=== PATIENT | male | born 1985 | race African-American/Black ===

== ENCOUNTER 2020-03-19 22:12 | Emergency (ER) | payer OTHER ==
[~2020-03-19] VITALS: Ht 165.1 cm; Wt 91.0 kg
[2020-03-19 22:39] LABS: HEMATOCRIT 45.5 % (39.0-50.0); HEMOGLOBIN 15.5 g/dl (14.0-18.0); IMMATURE GRANULOCYTES 0.2 % (0.0-5.0); MEAN CELL VOLUME 100.4 fL CALC (80.0-100.0); MEAN CORPUSCULAR HGB 34.2 pG CALC (26.0-32.0); MEAN CORPUSCULAR HGB CONC 34.1 g/dL CAL (32.0-36.0); NEUT# 2.78 thou/uL (1.82-7.42); RED BLOOD COUNT 4.53 mill/uL (4.70-6.10); RED CELL DISTRI WIDTH 14.4 % (11.5-15.5)
[2020-03-19 22:54] LABS: ALBUMIN 5.1 g/dL (3.2-5.0); ALKALINE PHOSPHATASE 106 u/l (38-126); AMYLASE 131 u/l (30-110); ANION GAP 23 (6-22 (CALC)); BILIRUBIN, TOTAL 0.9 mg/dL (0.0-1.4); BUN 27 mg/dL (9-20); BUN/CREATININE RATIO 31 (12-20 (CALC)); CARBON DIOXIDE 27 mmol/l (22-30); CHLORIDE 99 mmol/l (95-108); CREATININE 0.9 mg/dL (0.7-1.3); ETHYL ALCOHOL 237 mg/dl (0-30); GFR > 60 ML/MIN (>=60 (CALC)); GFR FOR AFR.AMER. > 60 ML/MIN (>=60 (CALC)); LIPASE 392 u/l (23-300); MAGNESIUM 1.8 mg/dL (1.6-2.3); POTASSIUM 3.8 mmol/l (3.5-5.1); SGOT/AST 204 u/l (17-59); SODIUM 145 mmol/l (137-146); TOTAL PROTEIN 9.7 g/dL (6.3-8.2)
[2020-03-19 23:06] LABS: URINE BLOOD DIPSTICK MODERATE (NEGATIVE); URINE COLOR YELLOW; URINE GLUCOSE - DIPSTICK NEGATIVE (NEGATIVE); URINE KETONE 15 mg/dL (NEGATIVE); URINE LEUK ESTERASE NEGATIVE (NEGATIVE); URINE NITRITE - DIPSTICK NEGATIVE (Negative); URINE PROTEIN - DIPSTICK >=300 mg/dL (NEG-TRACE); URINE SPECIFIC GRAVITY >=1.030; URINE UROBILINOGEN - DIPSTICK 0.2 E.U./dL (0.2)
[2020-03-19 23:15] LABS: URINE BILIRUBIN - DIPSTICK NEGATIVE (NEGATIVE)
[2020-03-19 23:17] LABS: URINE BACTERIA FEW hpf; URINE SQUAMOUS EPITHELIAL CELL FEW EPI/hpf (0-FEW)
[2020-03-19] MEDS ORDERED: TAMSULOSIN0.4 MG PO (23:23)
[2020-03-19] MEDS ORDERED: CHOLESTEROL MED (23:24)
[2020-03-19] MEDS ORDERED: B/P MED (23:24)
[2020-03-19] MEDS ORDERED: PEPCID40 MG PO (23:40)
[2020-03-20 00:05] VITALS: BP 143/75
== END 2020-03-20 00:05 | disposition home or self-care (01) | DRG 897 ==
LOC: ED 22:12
PROVIDERS: Family Medicine
DX: F10.129 Alcohol abuse with intoxication, unspecified (principal); K29.20 Alcoholic gastritis without bleeding; I10 Essential (primary) hypertension; E78.5 Hyperlipidemia, unspecified; F32.9 Major depressive disorder, single episode, unspecified

== ENCOUNTER 2020-12-15 12:04 | Emergency (ER) | payer BC ==
[~2020-12-15 12:04] MED LIST: B/P MED; CHOLESTEROL MED; PEPCID40 MG PO; TAMSULOSIN0.4 MG PO
[2020-12-15 15:15] VITALS: BP 149/85
[2020-12-15] MEDS ORDERED: TAM75CAP PO (15:26)
[2020-12-15] MEDS ORDERED: ONDANSETRON4 MG PO (15:26)
== END 2020-12-15 15:40 | disposition home or self-care (01) | DRG 195 ==
LOC: ED 12:04
DX: J10.1 Influenza due to other identified influenza virus with other respiratory manifestations (principal); I10 Essential (primary) hypertension; E78.5 Hyperlipidemia, unspecified; F32.9 Major depressive disorder, single episode, unspecified; F10.10 Alcohol abuse, uncomplicated; Z20.822 Contact with and (suspected) exposure to COVID-19

== ENCOUNTER 2021-03-08 18:22 | Emergency (ER) | payer BC ==
[~2021-03-08 18:22] MED LIST changes: +ONDANSETRON4 MG PO; +TAM75CAP PO
== END 2021-03-08 20:18 | disposition left against medical advice (07) | DRG 951 ==
LOC: ED 18:22 → LWOBS 20:18
DX: Z53.21 Procedure and treatment not carried out due to patient leaving prior to being seen by health care provider (principal)

== ENCOUNTER 2021-06-07 18:12 | Emergency (ER) | payer SELFPAY ==
[2021-06-08] MEDS ORDERED: ZOLOFT50 MG PO (02:35)
[2021-06-08] MEDS ORDERED: MINIPRESS2 MG PO (02:35)
[2021-06-08] MEDS ORDERED: TRAZODONE100 MG PO (02:36)
== END 2021-06-07 18:50 | disposition left against medical advice (07) | DRG 951 ==
LOC: ED 18:12 → LWOBS 18:46
DX: Z53.21 Procedure and treatment not carried out due to patient leaving prior to being seen by health care provider (principal)

== ENCOUNTER 2021-06-08 01:30 | Observation (INO) | payer SELFPAY ==
[~2021-06-08] VITALS: Ht 165.1 cm; Wt 95.5 kg
--- NOTE | 2021-06-08 01:31 | NUR ---
BY EMS TO ROOM
--- NOTE | 2021-06-08 02:30 | NUR ---
NO SIGNIFICANT CHANGES NOTED.
[2021-06-08] MEDS ORDERED: ZOLOFT50 MG PO (02:35)
[2021-06-08] MEDS ORDERED: MINIPRESS2 MG PO (02:35)
[2021-06-08] MEDS ORDERED: TRAZODONE100 MG PO (02:36)
[2021-06-08 02:50] LABS: HEMATOCRIT 42.4 % (39.0-50.0); HEMOGLOBIN 14.2 g/dl (14.0-18.0); IMMATURE GRANULOCYTES 0.3 % (0.0-5.0); MEAN CELL VOLUME 103.9 fL CALC (80.0-100.0); MEAN CORPUSCULAR HGB 34.8 pG CALC (26.0-32.0); MEAN CORPUSCULAR HGB CONC 33.5 g/dL CAL (32.0-36.0); NEUT# 8.07 thou/uL (1.82-7.42); RED BLOOD COUNT 4.08 mill/uL (4.70-6.10); RED CELL DISTRI WIDTH 13.1 % (11.5-15.5)
[2021-06-08 02:51] LABS: URINE BLOOD DIPSTICK TRACE-INTACT (NEGATIVE); URINE COLOR YELLOW; URINE GLUCOSE - DIPSTICK NEGATIVE (NEGATIVE); URINE KETONE 15 mg/dL (NEGATIVE); URINE LEUK ESTERASE NEGATIVE (NEGATIVE); URINE PH 5.5 (4.5-8.0); URINE PROTEIN - DIPSTICK 100 mg/dL (NEG-TRACE); URINE SPECIFIC GRAVITY >=1.030; URINE UROBILINOGEN - DIPSTICK 0.2 E.U./dL (0.2)
[2021-06-08 02:57] LABS: URINE BILIRUBIN - DIPSTICK SMALL (NEGATIVE)
[2021-06-08 02:58] LABS: URINE NITRITE - DIPSTICK NEGATIVE (Negative)
[2021-06-08 03:08] LABS: URINE BACTERIA MODERATE hpf; URINE COARSE GRANULAR CAST FEW lpf; URINE EPITHELIAL CELLS MODERATE EPI/hpf (0-FEW); URINE FINE GRAN CAST FEW lpf; URINE HYALINE CAST FEW lpf (NONE-RARE)
[2021-06-08 03:20] LABS: ALBUMIN 4.6 g/dL (3.2-5.0); ALKALINE PHOSPHATASE 110 u/l (38-126); BUN 22 mg/dL (9-20); CHLORIDE 94 mmol/l (95-108); ETHYL ALCOHOL 113 mg/dl (0-30); LIPASE 751 u/l (23-300); POTASSIUM 3.2 mmol/l (3.5-5.1); SGOT/AST 127 u/l (17-59); SODIUM 140 mmol/l (137-146)
[2021-06-08 03:22] LABS: ANION GAP 16 (6-22 (CALC)); BILIRUBIN, TOTAL 1.3 mg/dL (0.0-1.4); BUN/CREATININE RATIO 12 (12-20 (CALC)); CARBON DIOXIDE 33 mmol/l (22-30); CREATININE 1.9 mg/dL (0.7-1.3); GFR 40 ML/MIN (>=60 (CALC)); GFR FOR AFR.AMER. 49 ML/MIN (>=60 (CALC))
--- NOTE | 2021-06-08 03:40 | NUR ---
RETURNED FROM CT. VSS. NAD.
--- NOTE | 2021-06-08 05:00 | NUR ---
NO SIGNIFICANT CHANGE IN EXAM.
--- NOTE | 2021-06-08 05:40 | NUR ---
DISCUSSED ADMISSION WITH PT.
--- NOTE | 2021-06-08 07:22 | NUR ---
PATIENT OFFERED EXTRA BLANKETS, DENIES ANY OTHERS NEEDS CURRENTLY
--- NOTE | 2021-06-08 07:45 | NUR ---
ATTEMPT TO CALL PATIENT REPORT
--- NOTE | 2021-06-08 09:54 | NUR ---
THIRD ATTEMPT TO CALL PATIENT REPORT TO MED/SURG
--- NOTE | 2021-06-08 10:20 | NUR ---
REPORT RECIEVED FROM JESSA FIERRO
--- NOTE | 2021-06-08 10:50 | NUR ---
CALL FROM MED/SURG FROM FROM SEGUNDO FIERRO FOR PATIENT REPORT
--- NOTE | 2021-06-08 10:54 | NUR ---
PT ARRIVED AT THIS TIME. PT A LITTLE SHAKY AT THIS TIME. STATES FROM WITHDRAWLS. IV SITTE ON THE RAC 20G EMS SITE. ORIENTATED PT TO ROOM. FALL/SAFTEY PRECFAUTIONS IN PLACE. CALL LIGHT IS WITHIN REACH
--- NOTE | 2021-06-08 12:00 | NUR ---
PT SITTING WATCHING TV AT THIS TIME. PT SHOWS SLIGHT ANXIETY. VERBAL CUES GIVEN. IV PATENT. CALL LIGHT WITHIN REACH. TELE MONITOR IN REACH
--- NOTE | 2021-06-08 15:11 | NUR ---
FAMILY MEMBER AT BEDSIDE
[2021-06-08 15:47] VITALS: BP 154/94
--- NOTE | 2021-06-08 17:58 | NUR ---
PT WATCHING TV AT THIS TIME. STATES FEELING BETTER JUST TIRED. BREATHING IS EVEN AND UNLABORED. FALL/SAFTEY PRECAUTIONS IN PLACE. CALL LIGHT IS WITHIN REACH
--- NOTE | 2021-06-08 19:10 | NUR ---
REPORT RECEIVED FROM Garland ADAM RN, PATIENT CARE ASSUMED AT THIS TIME.
[2021-06-08 19:26] VITALS: BP 166/94
--- NOTE | 2021-06-08 20:07 | NUR ---
ASSEMENT COMPLETED AT THIS TIME. CIWA OF 5. PATIENT DENIES ANY CURRENT NEEDS. CALL LIGHT AND BEDSIDE TABLE WITHIN THE [facility].
--- NOTE | 2021-06-09 00:15 | NUR ---
ANTIBIOTIC HUNG AT THIS TIME PT MEDICATED PER EMAR, PATIENT DENIES ANY CURRENT NEEDS. CALL LIGHT AND BEDSIDE TABLE WITHIN REACH.
--- NOTE | 2021-06-09 04:22 | NUR ---
PATIENT SLEEPING, EASILY AWOKEN BY WRITTER, DENIES ANY CURRENT NEEDS, CALL LIGHT WITHIN REACH.
[2021-06-09 04:54] VITALS: BP 148/82
[2021-06-09 05:58] LABS: HEMATOCRIT 36.7 % (39.0-50.0); MEAN CORPUSCULAR HGB CONC 32.7 g/dL CAL (32.0-36.0); RED BLOOD COUNT 3.43 mill/uL (4.70-6.10)
[2021-06-09 06:22] LABS: ANION GAP 8 (6-22 (CALC)); BUN 19 mg/dL (9-20); BUN/CREATININE RATIO 17 (12-20 (CALC)); CARBON DIOXIDE 32 mmol/l (22-30); CHLORIDE 102 mmol/l (95-108); CPK 368 u/l (52-200); CREATININE 1.2 mg/dL (0.7-1.3); GFR > 60 ML/MIN (>=60 (CALC)); GFR FOR AFR.AMER. > 60 ML/MIN (>=60 (CALC)); MAGNESIUM 1.6 mg/dL (1.6-2.3); POTASSIUM 3.2 mmol/l (3.5-5.1); SODIUM 138 mmol/l (137-146)
--- NOTE | 2021-06-09 08:00 | NUR ---
ASSESSMENT AND VITALS ALLOWED AT THIS TIME. PT IS LESS ANXIOUS TODAY. NO TREMORS NOTED TODAY. FALL/SAFETY PRECAUTIONS IN PLACE. IV IS RAC 20G INFUSING NS PER EMAR. CALL LIGHT WITHIN REACH. PT STATES NO PAIN
--- NOTE | 2021-06-09 12:00 | NUR ---
PT EATING LUNCH. NO DISTRESS NOTED. FALL/SAFTEY PRECAUTIONS IN PLACE. CALL LIGHT IS WITHIN REACH
[2021-06-09] MEDS ORDERED: PROTONIX40 M2 PO (12:55)
[2021-06-09] MEDS ORDERED: ZOFRAN4 MG/TAB PO (12:56)
[2021-06-09] MEDS ORDERED: LIBRIUM10 MG PO (12:56)
--- NOTE | 2021-06-09 16:30 | NUR ---
PT AWAKE WATCHING TV. STATES NO PAIN AT THIS TIME. IV REMAINS PATENT. FALL/SAFETY PRECAUTIONS IN PLACE. CALL LIGHT WITHIN REACH
--- NOTE | 2021-06-09 17:18 | NUR ---
Discharge instructions given. Patient verbalizes understanding of same. Discharged in stable condition via [facility] All belongings sent with pt. IV RAC 20 REMOVED. CATHETER INTATC.
== END 2021-06-09 17:18 | disposition home or self-care (01) | DRG 312 ==
LOC: ED 01:30 → ED-I 02:30 → ED 02:30 → ED-I 06:00 → ED 06:24 → ED-I 06:25 → MS2 10:50
PROVIDERS: Nurse Practitioner; ADMIT Internal Medicine; ATTEND Internal Medicine
DX: R55 Syncope and collapse (principal); K85.20 Alcohol induced acute pancreatitis without necrosis or infection; N17.9 Acute kidney failure, unspecified; M62.82 Rhabdomyolysis; E87.2 Acidosis; F10.139 Alcohol abuse with withdrawal, unspecified; F10.129 Alcohol abuse with intoxication, unspecified; K29.20 Alcoholic gastritis without bleeding; E86.0 Dehydration; E87.6 Hypokalemia; I10 Essential (primary) hypertension; E78.5 Hyperlipidemia, unspecified; R82.71 Bacteriuria; F32.A Depression, unspecified; S00.81XA Abrasion of other part of head, initial encounter; W19.XXXA Unspecified fall, initial encounter; Y90.5 Blood alcohol level of 100-119 mg/100 ml; Z20.822 Contact with and (suspected) exposure to COVID-19
CPT/HCPCS: G0378; Q9967; S0164

== ENCOUNTER 2021-11-06 07:44 | Emergency (ER) | payer SELFPAY ==
[~2021-11-06] VITALS: Ht 165.1 cm; Wt 95.4 kg
[~2021-11-06 07:44] MED LIST changes: +LIBRIUM10 MG PO; +MINIPRESS2 MG PO; +PROTONIX40 M2 PO; +TRAZODONE100 MG PO; +ZOFRAN4 MG/TAB PO; +ZOLOFT50 MG PO
[2021-11-06 07:50] VITALS: BP 139/90
[2021-11-06 08:00] VITALS: BP 138/101
[2021-11-06 08:31] VITALS: BP 133/92
[2021-11-06] MEDS ORDERED: IBUPROFEN600 MG PO (08:33)
[2021-11-06 08:51] VITALS: BP 133/92
== END 2021-11-06 08:55 | disposition home or self-care (01) | DRG 563 ==
LOC: ED 07:44
DX: S93.401A Sprain of unspecified ligament of right ankle, initial encounter (principal); I10 Essential (primary) hypertension; X58.XXXA Exposure to other specified factors, initial encounter

== ENCOUNTER 2021-11-29 14:52 | Inpatient (IN) | payer OTHER ==
[2021-11-29] VITALS (21 sets, daily range): BP systolic 100–149; BP diastolic 79–103
[~2021-11-29] VITALS: Ht 165.1 cm; Wt 95.0 kg
[~2021-11-29 14:52] MED LIST changes: +IBUPROFEN600 MG PO
--- NOTE | 2021-11-29 14:56 | NUR ---
PT TO ROOM VIA EMS
--- NOTE | 2021-11-29 15:15 | NUR ---
PATIENT ALERT AND ORIENTED X3, REPORTS BEING A DAILY DRINKER. HAD A FIFTH OF LIQUOR DURING THE NIGHT. PATIENT REPORTS FALLING AT HOME PRIOR TO ARRIVAL, INJURY/PAIN TO RIGHT ANKLE. DENIES ANY LOC OR HEAD INJURY. PATIENT REPORTS BEING IN ALCOHOL WITHDRAWS. NOTED TO HAVE TREMORS TO BILATERAL UPPER EXTREMITIES. RAMESH, CLAUDETTE AT BEDSIDE.
[2021-11-29 15:26] LABS: IMMATURE GRANULOCYTES 0.4 % (0.0-5.0); MEAN CELL VOLUME 100.9 fL CALC (80.0-100.0); MEAN CORPUSCULAR HGB CONC 33.7 g/dL CAL (32.0-36.0); NEUT# 6.23 thou/uL (1.82-7.42); RED BLOOD COUNT 4.53 mill/uL (4.70-6.10); RED CELL DISTRI WIDTH 14.3 % (11.5-15.5)
[2021-11-29 15:28] LABS: HEMATOCRIT 45.7 % (39.0-50.0); HEMOGLOBIN 15.4 g/dl (14.0-18.0)
[2021-11-29 15:47] LABS: ALBUMIN 4.9 g/dL (3.2-5.0); ALKALINE PHOSPHATASE 133 u/l (38-126); AMYLASE 146 u/l (30-110); ANION GAP 19 (6-22 (CALC)); BILIRUBIN, TOTAL 1.5 mg/dL (0.0-1.4); BUN 24 mg/dL (9-20); BUN/CREATININE RATIO 26 (12-20 (CALC)); CARBON DIOXIDE 27 mmol/l (22-30); CHLORIDE 99 mmol/l (95-108); CREATININE 0.9 mg/dL (0.7-1.3); GFR FOR AFR.AMER. > 60 ML/MIN (>=60 (CALC)); GFR OTHER RACES > 60 ML/MIN (>=60 (CALC)); LIPASE 430 u/l (23-300); POTASSIUM 3.6 mmol/l (3.5-5.1); SGOT/AST 89 u/l (17-59); SODIUM 141 mmol/l (137-146); TOTAL PROTEIN 9.2 g/dL (6.3-8.2)
[2021-11-29] MEDS ORDERED: ATORVASTATIN CA40 MG PO (16:01)
--- NOTE | 2021-11-29 16:04 | NUR ---
PATIENT MEDICATED PER MD ORDER. IN FLUIDS INFUSING TO IV SITES. TOLERATING TREATMENT WELL.
--- NOTE | 2021-11-29 16:57 | NUR ---
CLAUDETTE CHANDLER AT BEDSIDE IN INFORM PATIENT OF ADMIT PLANS, VERBAL UNDERSTANDING FROM PATIENT. MILD TREMORS TO LIPS AT THIS TIME.
--- NOTE | 2021-11-29 17:40 | NUR ---
PT WAITING FOR TRANSFER IN ROOM.
--- NOTE | 2021-11-29 18:20 | NUR ---
BEDSIDE REPORT GIVEN TO ADDISON RN. Admission Note Report Given to: ADDISON Transported by: Wheelchair X Stretcher Transported with: X Nurse Transporter X Patent IV O2 X Business Quality Assurance Analyst Location: X ICU MS2 PATIENT UP TO ICU 1 WITH BLACK SHIRT, BLACK SANDLES, CELL PHONE AND BLACK WALLET WITH PATIENT.
--- NOTE | 2021-11-29 18:26 | NUR ---
Patient transfered from ED at 1815, alert and oriented, transfered from ED stretcher to inpatient bed, no c/o pain or discomfort, no s/s of distress noted, moderate tremor noted to hands and voice.
[2021-11-30] VITALS (43 sets, daily range): BP systolic 101–164; BP diastolic 58–105
[2021-11-30 07:12] LABS: ANION GAP 7 (6-22 (CALC)); BUN 22 mg/dL (9-20); BUN/CREATININE RATIO 27 (12-20 (CALC)); CHLORIDE 102 mmol/l (95-108); CREATININE 0.8 mg/dL (0.7-1.3); GFR FOR AFR.AMER. > 60 ML/MIN (>=60 (CALC)); GFR OTHER RACES > 60 ML/MIN (>=60 (CALC)); MAGNESIUM 1.9 mg/dL (1.6-2.3); POTASSIUM 3.6 mmol/l (3.5-5.1); SODIUM 138 mmol/l (137-146)
[2021-11-30 07:17] LABS: CARBON DIOXIDE 33 mmol/l (22-30)
--- NOTE | 2021-11-30 08:00 | NUR ---
GOT REPORT FROM DIRECTOR TALENT ACQUISITION NURSE. PATIENT ASSESSED. AOX4. IN REPORT NURSE INFORMED ME THAT PATIENT HAS BEEN VOMITING. PER PATIENT HE DENIES ANY NAUSEA AND VOMITING AT THIS TIME. PATIENT STATES THAT THE ONLY THING HE FEELS IS WEAK AND SHAKEY. NO MENTAL OR VISUAL DISTRUBANCES NOTED AT THIS TIME. CALL LIGHT AND BEDSIDE TABLE WITH IN REACH OF PATIENT. ADVISED TO CALL IF HE NEEDED ANYTHING. PATIENT VERBALIZED UNDERSTANDING.
--- NOTE | 2021-11-30 12:00 | NUR ---
GAVE REPORT TO NURSE MATT THAT IS TAKING OVER CARE. SHE IS TAKING OVER CARE STARTING NOW.
[2021-11-30 13:08] LABS: URINE BLOOD DIPSTICK LARGE (NEGATIVE); URINE GLUCOSE - DIPSTICK NEGATIVE (NEGATIVE); URINE KETONE TRACE mg/dL (NEGATIVE); URINE LEUK ESTERASE NEGATIVE (NEGATIVE); URINE PROTEIN - DIPSTICK 30 mg/dL (NEG-TRACE)
[2021-11-30 13:12] LABS: URINE NITRITE - DIPSTICK NEGATIVE (Negative)
[2021-11-30 13:13] LABS: URINE BILIRUBIN - DIPSTICK SMALL (NEGATIVE); URINE COLOR RED; URINE RBC TNTC RBC/hpf (0-5)
--- NOTE | 2021-11-30 19:57 | NUR ---
PATIENT RESTING IN BED AT THIS TIME. PATIENT IS ALERT AND ORIENTED X 3 AND DENIES ANY PAIN AT THIS TIME. PATIENT CWIA SCORE CURRENTLY IS 5, TREMORS FELT IN FINGERTIPS AND STATES HE FEELS "SLIGHTLY NAUSEATED". LUNG JOSHI ARE CLEAR, BOWEL SOUNDS PRESENT AND BM SPECIMEN OBTAINED AND SENT TO LAB. PATIENT EDUCATED TO INFORM NURSE IF HE VOMITS AT ANYTIME AND IF HIS NAUSEA BECOMES WORSE. PATIENT ELECTROMEDICAL SERVICE ENGINEER READING SINUS RHYTHM AND HR OF 79 BP IS CURRENTLY 128/83. SIDERAILS ARE UP CALL LIGHT IS WITHIN REACH.
--- NOTE | 2021-11-30 21:51 | NUR ---
THIS NURSE INFORMED DR. DAMON OF STOOL OCCULT RESULT AND FINDINGS OF POSITIVE FOR BLOOD. NO NEW ORDERS GIVEN AT THIS TIME.
[2021-12-01] VITALS (20 sets, daily range): BP systolic 85–139; BP diastolic 45–98
--- NOTE | 2021-12-01 00:04 | NUR ---
PATIENT RESTING IN BED AT THIS TIME AND AWAKENED FOR ASSESSMENT. PATIENT DENIES NAUSEA AND OR VOMITTING AT THIS TIME. PATIENT DOES HAVE FELT TREMORS IN FINGERTIPS AND CWIA SCORE IS NOW 2. EDUCATION SPEC READING SINUS RHYTHM AND HR OF 92 SIDERAILS ARE UP CALL LIGHT NEAR. NOTED 200ML OF GRACE URINE IN URINAL AT THIS TIME.
--- NOTE | 2021-12-01 02:07 | NUR ---
PATIENT RESTING IN BED AT THIS TIME WITH EYES CLOSED. RESPIRATIONS ARE EASY AND UNLABORED AT THIS TIME. CUT TOBACCO BULKER IS READING SINUS RHYTHM AND HR OF 92. SIDERAILS ARE UP CALL LIGHT IS WITHIN REACH.
--- NOTE | 2021-12-01 04:00 | NUR ---
PATIENT LAYING IN BED WATCHING TV AT THIS TIME. PATIENT IS ALERT AND ORIENTED X 3 PATIENT DENIES ANY PAIN AND OR NAUSEA. PATIENT ALSO DENEIS ANY ANXIETY AT THIS TIME. CWIA SCORE IS A 1 AT THIS TIME. TREMORS ARE NOT VISIABLE BUT FELT IN FINGER TIPS. SIDERAILS ARE UP CALL LIGHT IS WITHIN REACH PRISON GUARD SUPERVISOR READING SINUS RHYTHM AT HR OF 80 WILL CONTINUE TO MONITOR.
[2021-12-01 05:41] LABS: MEAN CELL VOLUME 104.6 fL CALC (80.0-100.0); MEAN CORPUSCULAR HGB 34.6 pG CALC (26.0-32.0); MEAN CORPUSCULAR HGB CONC 33.1 g/dL CAL (32.0-36.0); RED BLOOD COUNT 3.5 mill/uL (4.70-6.10); RED CELL DISTRI WIDTH 14.1 % (11.5-15.5)
[2021-12-01 05:44] LABS: HEMATOCRIT 36.6 % (39.0-50.0); HEMOGLOBIN 12.1 g/dl (14.0-18.0)
[2021-12-01 06:08] LABS: ALKALINE PHOSPHATASE 83 u/l (38-126); ANION GAP 7 (6-22 (CALC)); BUN 16 mg/dL (9-20); BUN/CREATININE RATIO 17 (12-20 (CALC)); CARBON DIOXIDE 34 mmol/l (22-30); CHLORIDE 99 mmol/l (95-108); CREATININE 0.9 mg/dL (0.7-1.3); GFR FOR AFR.AMER. > 60 ML/MIN (>=60 (CALC)); GFR OTHER RACES > 60 ML/MIN (>=60 (CALC)); MAGNESIUM 1.8 mg/dL (1.6-2.3); SGOT/AST 76 u/l (17-59); SODIUM 137 mmol/l (137-146)
[2021-12-01 06:15] LABS: ALBUMIN 3.9 g/dL (3.2-5.0)
--- NOTE | 2021-12-01 09:38 | NUR ---
Hand off report given to SRI Mecredes. Patient transfered by wheelchair to room 269. Awake and alert, ambulatory without assistance, no c/o pain or discomfort, no s/s of distress, respirations even and unlabored on room air.
--- NOTE | 2021-12-02 00:54 | NUR ---
PT IN BED ASLEEP, NO DISTRESS NOTED, BED IN LOW POSITION, CALL LIGHT IN REACH
[2021-12-02 04:41] VITALS: BP 120/78
--- NOTE | 2021-12-02 05:05 | NUR ---
PT IN BED ASLEEP, NO DISTRESS NOTED, BED IN LOW POSITION, CALL LIGHT IN REACH, NO OVERNIGHT EVENTS
[2021-12-02 05:38] LABS: HEMATOCRIT 38.1 % (39.0-50.0); HEMOGLOBIN 12.9 g/dl (14.0-18.0); MEAN CELL VOLUME 102.4 fL CALC (80.0-100.0); MEAN CORPUSCULAR HGB 34.7 pG CALC (26.0-32.0); MEAN CORPUSCULAR HGB CONC 33.9 g/dL CAL (32.0-36.0); RED BLOOD COUNT 3.72 mill/uL (4.70-6.10); RED CELL DISTRI WIDTH 13.6 % (11.5-15.5)
[2021-12-02 05:54] LABS: ALBUMIN 3.9 g/dL (3.2-5.0); ALKALINE PHOSPHATASE 88 u/l (38-126); ANION GAP 6 (6-22 (CALC)); BILIRUBIN, TOTAL 1.8 mg/dL (0.0-1.4); BUN 12 mg/dL (9-20); BUN/CREATININE RATIO 14 (12-20 (CALC)); CARBON DIOXIDE 32 mmol/l (22-30); CHLORIDE 103 mmol/l (95-108); CREATININE 0.9 mg/dL (0.7-1.3); GFR FOR AFR.AMER. > 60 ML/MIN (>=60 (CALC)); GFR OTHER RACES > 60 ML/MIN (>=60 (CALC)); LIPASE 774 u/l (23-300); MAGNESIUM 1.9 mg/dL (1.6-2.3); POTASSIUM 3.3 mmol/l (3.5-5.1); SGOT/AST 102 u/l (17-59); SODIUM 137 mmol/l (137-146); TOTAL PROTEIN 7.2 g/dL (6.3-8.2)
[2021-12-02 06:44] VITALS: BP 127/84
--- NOTE | 2021-12-02 07:00 | NUR ---
REPORT RECIVED FROM SOCIAL MEDIA JOB TITLESSECURITY PATROL DRIVER
--- NOTE | 2021-12-02 09:30 | NUR ---
PT ASSISTED BACK TO BED. STATES NO PAIN. IV 20 RAC SL FLUSHED. ASSESSMENT ALLOWED. LUNG SOUNDS CLEAR. BREATHING EVEN AND UNLABORED. CIWA SCORE: 0. BANANA BAG INFUSING PER EMAR. FALL/SAFTEY PRECAUTION IN PLACE. CALL LIGHT WITHIN REACH
--- NOTE | 2021-12-02 12:30 | NUR ---
PT WATCHING TV. CIWA SCORE: 0. BANANA BAG INFUSIGN PER EMAR. IV PATENT. STATES NO NEEDS AT THIS TIME. FALL/SAFTEY PRECAUTION IN PLACE. CALL LIGHT WITHIN REACH
[2021-12-02 15:39] VITALS: BP 128/85
--- NOTE | 2021-12-02 16:08 | NUR ---
PT RESTING IN BED. BREATHING EVEN AND UNLABORED. NO SIGNS OF DISTRESS. BANANA BAG INFUSING PER EMAR. IV PATENT. FALL/SAFTEY PRECAUTION IN PLACE. CALL LIGHT WITHIN REACH
[2021-12-02 18:52] VITALS: BP 139/92
[2021-12-02 19:00] VITALS: BP 139/92
--- NOTE | 2021-12-03 04:11 | NUR ---
PT A/O X3, NO ACUTE OVERNIGHT EVENTS, PT SLEPT ALL NIGHT, BED IN LOW POSITION, CALL LIGHT IN REACH. CIWA-0
[2021-12-03 04:25] VITALS: BP 117/81
[2021-12-03 05:06] LABS: HEMOGLOBIN 13.1 g/dl (14.0-18.0); MEAN CELL VOLUME 105.3 fL CALC (80.0-100.0); MEAN CORPUSCULAR HGB 34.5 pG CALC (26.0-32.0); MEAN CORPUSCULAR HGB CONC 32.8 g/dL CAL (32.0-36.0); RED BLOOD COUNT 3.8 mill/uL (4.70-6.10); RED CELL DISTRI WIDTH 13.7 % (11.5-15.5)
[2021-12-03 05:18] LABS: ALBUMIN 3.9 g/dL (3.2-5.0); ALKALINE PHOSPHATASE 80 u/l (38-126); ANION GAP 10 (6-22 (CALC)); BILIRUBIN, TOTAL 1.3 mg/dL (0.0-1.4); BUN 14 mg/dL (9-20); BUN/CREATININE RATIO 16 (12-20 (CALC)); CARBON DIOXIDE 29 mmol/l (22-30); CHLORIDE 101 mmol/l (95-108); CREATININE 0.9 mg/dL (0.7-1.3); GFR FOR AFR.AMER. > 60 ML/MIN (>=60 (CALC)); GFR OTHER RACES > 60 ML/MIN (>=60 (CALC)); LIPASE 912 u/l (23-300); MAGNESIUM 1.8 mg/dL (1.6-2.3); POTASSIUM 3.8 mmol/l (3.5-5.1); SGOT/AST 112 u/l (17-59); SODIUM 136 mmol/l (137-146); TOTAL PROTEIN 7.1 g/dL (6.3-8.2)
[2021-12-03 05:33] VITALS: BP 117/81
[2021-12-03 07:49] VITALS: BP 127/86
--- NOTE | 2021-12-03 08:57 | NUR ---
PT LAYING IN BED. A&O X3. NO DISTRESS NOTED. CURRENTLY ON RA; DENIES ANY RESPIRATORY ISSUES AT THIS TIME. CLEAR BREATH SOUNDS UPON AUSCULTATION. ACTIVE BOWEL SOUNDS X4 QUADRANTS. CIWA 0 THIS AM. IV HEALTHY AND PATENT WITH IVF INFUSING PER MAR ORDERS. ASSESSMENT COMPLETED. DISCUSSED POC. CALL LIGHT WITHIN REACH.
--- NOTE | 2021-12-03 12:17 | NUR ---
PT C/O OF NAUSEA. ZOFRAN IV GIVEN. NO OTHER NEEDS AT THIS TIME. CIWA 1. CALL LIGHT WITHIN REACH.
--- NOTE | 2021-12-03 16:05 | NUR ---
ZOFRAN GIVEN FOR MILD NAUSEA. NO OTHER NEEDS REPORTED AT THIS TIME. CALL LIGHT WITHIN REACH.
[2021-12-03 16:53] VITALS: BP 124/92
[2021-12-03 19:13] VITALS: BP 142/92
[2021-12-04 03:52] VITALS: BP 122/80
--- NOTE | 2021-12-04 04:04 | NUR ---
PT IN BED ASLEEP, NO DISTRESS NOTED, NO OVERNIGHT EVENTS, PT CIWA-1'S ALL NIGHT, MILD TREMOR, BED IN LOW POSITION, CALL LIGHT IN REACH
[2021-12-04 05:44] LABS: HEMATOCRIT 35.2 % (39.0-50.0); HEMOGLOBIN 11.8 g/dl (14.0-18.0); IMMATURE GRANULOCYTES 0.4 % (0.0-5.0); MEAN CELL VOLUME 103.2 fL CALC (80.0-100.0); MEAN CORPUSCULAR HGB 34.6 pG CALC (26.0-32.0); MEAN CORPUSCULAR HGB CONC 33.5 g/dL CAL (32.0-36.0); NEUT# 3.12 thou/uL (1.82-7.42); RED BLOOD COUNT 3.41 mill/uL (4.70-6.10); RED CELL DISTRI WIDTH 13.9 % (11.5-15.5)
[2021-12-04 05:50] LABS: ALBUMIN 3.4 g/dL (3.2-5.0); ALKALINE PHOSPHATASE 74 u/l (38-126); AMYLASE 179 u/l (30-110); ANION GAP 8 (6-22 (CALC)); BILIRUBIN, TOTAL 0.9 mg/dL (0.0-1.4); BUN 14 mg/dL (9-20); BUN/CREATININE RATIO 16 (12-20 (CALC)); CARBON DIOXIDE 28 mmol/l (22-30); CHLORIDE 104 mmol/l (95-108); CREATININE 0.9 mg/dL (0.7-1.3); GFR FOR AFR.AMER. > 60 ML/MIN (>=60 (CALC)); GFR OTHER RACES > 60 ML/MIN (>=60 (CALC)); LIPASE 1065 u/l (23-300); MAGNESIUM 1.8 mg/dL (1.6-2.3); POTASSIUM 3.6 mmol/l (3.5-5.1); SGOT/AST 90 u/l (17-59); SODIUM 136 mmol/l (137-146); TOTAL PROTEIN 6.4 g/dL (6.3-8.2)
[2021-12-04 06:53] VITALS: BP 117/79
--- NOTE | 2021-12-04 08:21 | NUR ---
RESTING QUIETLY IN BED, NO SIGNS OR SYMPTOMS OF DISTRESS NOTED OR VOICED, NO C/O PAIN, IV PATENT AND INFUSING.
--- NOTE | 2021-12-04 12:14 | NUR ---
RESTING QUIETLY IN ROOM, NO SIGNS OR SYMPTOMS OF DISTRESS NOTED OR VOICED.
[2021-12-04 14:30] VITALS: BP 146/91
--- NOTE | 2021-12-04 16:06 | NUR ---
RESTING QUIETLY IN BED, NO SIGNS OR SYMPTOMS OF DISTRESS NOTED OR VOICED.
[2021-12-04 18:58] VITALS: BP 130/87
--- NOTE | 2021-12-04 21:58 | NUR ---
PT IN BED AWAKE, NO DISTRESS NOTED, BED IN LOW POSITION, CALL LIGHT IN REACH
[2021-12-05 03:50] VITALS: BP 114/73
--- NOTE | 2021-12-05 04:25 | NUR ---
PT IN BED ASLEEP, NO OVERNIGHT EVENTS, BED IN LOW POSITON, CALL LIGHT IN REACH
[2021-12-05 05:32] LABS: HEMATOCRIT 35.1 % (39.0-50.0); HEMOGLOBIN 11.9 g/dl (14.0-18.0); IMMATURE GRANULOCYTES 0.5 % (0.0-5.0); MEAN CELL VOLUME 103.2 fL CALC (80.0-100.0); MEAN CORPUSCULAR HGB CONC 33.9 g/dL CAL (32.0-36.0); NEUT# 2.91 thou/uL (1.82-7.42); RED BLOOD COUNT 3.4 mill/uL (4.70-6.10); RED CELL DISTRI WIDTH 14.1 % (11.5-15.5)
[2021-12-05 06:00] LABS: ALBUMIN 3.4 g/dL (3.2-5.0); ALKALINE PHOSPHATASE 69 u/l (38-126); AMYLASE 186 u/l (30-110); ANION GAP 9 (6-22 (CALC)); BILIRUBIN, TOTAL 0.7 mg/dL (0.0-1.4); BUN 11 mg/dL (9-20); BUN/CREATININE RATIO 13 (12-20 (CALC)); CARBON DIOXIDE 28 mmol/l (22-30); CHLORIDE 105 mmol/l (95-108); CREATININE 0.8 mg/dL (0.7-1.3); GFR FOR AFR.AMER. > 60 ML/MIN (>=60 (CALC)); GFR OTHER RACES > 60 ML/MIN (>=60 (CALC)); POTASSIUM 3.8 mmol/l (3.5-5.1); SGOT/AST 79 u/l (17-59); SODIUM 138 mmol/l (137-146); TOTAL PROTEIN 6.4 g/dL (6.3-8.2)
[2021-12-05 07:14] VITALS: BP 114/73
--- NOTE | 2021-12-05 07:33 | NUR ---
PT RESTING IN FOWLERS POSITION. A/OX3 ASSESMENT AND VS COMPLETED. RESPIRATIONS EVEN AND UNLABORED. RA. HEART RHYHTM NORMAL HYPOACTIVE BS. IV SITE NOTED INFUSING WITH NS. PT DENIES ADDITIONAL NEEDS AT THE TIME . ALL SAFETY PRECAUTIONS IN PLACE.
[2021-12-05 08:00] VITALS: BP 134/101
[2021-12-05 08:06] VITALS: BP 134/101
[2021-12-05 08:12] VITALS: BP 134/101
[2021-12-05] MEDS ORDERED: VITAMIN B-1100 M1 PO (11:22)
[2021-12-05] MEDS ORDERED: AMLODIPINE BESYL5 MG PO (11:22)
[2021-12-05] MEDS ORDERED: CHLORDIAZEPOXID25 M1 PO (11:22)
[2021-12-05] MEDS ORDERED: FOLIC ACID1 M1 PO (11:22)
[2021-12-05] MEDS ORDERED: PANTOPRAZOLE SO40 M1 PO (11:22)
--- NOTE | 2021-12-05 12:00 | NUR ---
pt to be dc.
--- NOTE | 2021-12-05 13:30 | NUR ---
Discharge instructions given. Patient verbalizes understanding of same. Discharged in stable condition via Ambulatory to Home with . All belongings sent with pt. pt iv removed.
== END 2021-12-05 13:30 | disposition home or self-care (01) | DRG 896 ==
LOC: ED 14:52 → ED-I 16:20 → ED 17:01 → ICU 17:02 → MS2 11-30 06:18 → ICU 11-30 06:18 → MS2 12-01 10:09
PROVIDERS: Internal Medicine; Nurse Practitioner; ADMIT Internal Medicine; ATTEND Internal Medicine
DX: F10.139 Alcohol abuse with withdrawal, unspecified (principal); U07.1 COVID-19; K85.20 Alcohol induced acute pancreatitis without necrosis or infection; N17.9 Acute kidney failure, unspecified; I10 Essential (primary) hypertension; S93.401A Sprain of unspecified ligament of right ankle, initial encounter; F43.10 Post-traumatic stress disorder, unspecified; F32.A Depression, unspecified; E78.5 Hyperlipidemia, unspecified; R11.2 Nausea with vomiting, unspecified; R19.5 Other fecal abnormalities; R31.9 Hematuria, unspecified; K70.10 Alcoholic hepatitis without ascites; X50.0XXA Overexertion from strenuous movement or load, initial encounter
CPT/HCPCS: J1650; J2060